=== PATIENT | male | born 1960 | race African-American/Black ===

== ENCOUNTER 2022-07-24 19:01 | Emergency (ER) | payer BC ==
[2022-07-24 19:52] VITALS: BP 139/66; PULSE 71; RESP 16; TEMP 98.3
[2022-07-24] MEDS ORDERED: SODIUM CHLORIDE 0.9% 1,000 ML IV STA (20:03)
[2022-07-24] MEDS ORDERED: METOCLOPRAMIDE 5 MG/ML 2 ML VIAL IVP STA (20:03)
[2022-07-24] MEDS ORDERED: diphenhydrAMINE 50 MG/ML 1 ML VIAL IVP STA (20:03)
[2022-07-24 20:36] LABS: Basophils % (A) 1 %; Eosinophils # (A) 0.1 k/uL (0-0.7); Eosinophils % (A) 4 %; HCT 42.8 % (39.0-53.0); HGB 14.1 gm/dL (13.0-17.5); Lymphocytes # (A) 1.1 k/uL (1.0-4.8); Lymphocytes % (A) 40 %; MCH 29.8 pg (25.0-35.0); MCV 90.3 fL (80.0-100.0); Mean Platelet Volume 7.7; Monocytes # (A) 0.3 k/uL (0-1.0); Monocytes % (A) 12 %; Neutrophils # (A) 1.1 k/uL (1.3-7.7); Neutrophils % (A) 40 %; Platelet Count 183 k/uL (150-450); RBC 4.74 m/uL (4.30-5.90); RDW 12.1 % (11.5-15.5); WBC 2.9 k/uL (3.8-10.6)
[2022-07-24 20:54] LABS: Calcium 9.1 mg/dL (8.4-10.2); Potassium 4.1 mmol/L (3.5-5.1); Total Bilirubin 0.4 mg/dL (0.2-1.3); Total Protein 7.1 g/dL (6.3-8.2)
--- NOTE | 2022-07-24 21:04 | CT ---
EXAMINATION TYPE: CT brain wo con CT DLP: 1123.4 mGycm, Automated exposure control for dose reduction was used. DATE OF EXAM: 07/24/2022 8:44 PM COMPARISON: None. CLINICAL INDICATION:Male, 62 years old with history of Headache, right posterior headache TECHNIQUE: Brain: Axial CT images of the brain were obtained with coronal and sagittal reformats created and rev iewed. Contrast used: None. Oral contrast used: None. FINDINGS: Brain: Extra-axial spaces: No abnormal extra-axial fluid collections. Ventricular system: Within normal limits Cerebral parenchyma: Mild bilateral frontal cerebral atrophy. No acute intraparenchymal hemorrhage or mass effect. The du-white junction is well differentiated. Cerebellum: Unremarkable. Mass effect: No evidence of midline shift. Intracranial vasculature: Atherosclerotic calcifications of the intracranial vessels. Soft tissues: Normal. Calvarium/osseous structures: No depressed skull fracture. Paranasal sinuses and mastoid air cells: Mild scattered paranasal sinus disease.. Mastoid air cells a re Clear Visualized orbits: Orbital contents are intact. IMPRESSION: 1. Mild cerebral atrophy. No acute intracranial process. 2. Mild paranasal sinus disease.
[2022-07-24] MEDS ORDERED: ORPHENADRINE 30 MG/ML 2 ML VIAL IVP STA (21:07)
[2022-07-24] MEDS ORDERED: KETOROLAC 15 MG/ML 1 ML VIAL IVP STA (21:07)
--- NOTE | 2022-07-24 21:51 | ED ---
General Adult HPI - General Chief complaint: ENT Stated complaint: Head Pain Time Seen by Provider: 07/24/22 19:57 Source: patient Mode of arrival: ambulatory - History of Present Illness Initial comments: Patient is a 62-year-old male presenting with chief complaint of headache. He admits to a shooting pain behind the right ear that has been going on for last 2 days. Pain is intermittent. No alleviating or aggravating factors. He has been taking Tylenol for his symptoms which has not been helpful. No pain inside the ear or hearing changes. No numbness or tingling. No nausea, vomiting, dizziness, chest pain, difficulty breathing, neck pain, fever, chills, palpitations, URI-like symptoms. - Related Data Allergies Allergy/AdvReac Type Severity Reaction Status Date / Time No Known Allergies Allergy Verified 07/24/22 19:52 Review of Systems ROS Statement: Those systems with pertinent positive or pertinent negative responses have been documented in the HPI. ROS Other: All systems not noted in ROS Statement are negative. Past Medical History Past Medical History: No Reported History Additional Past Medical History / Comment(s): Lymphona, sarcoidosis, lithotripsy and kidney stone removal Past Surgical History: No Surgical Hx Reported Past Psychological History: No Psychological Hx Reported Smoking Status: Never smoker Past Alcohol Use History: None Reported Past Drug Use History: None Reported General Exam Limitations: no limitations General appearance: alert, in no apparent distress Head exam: Present: atraumatic, normocephalic, normal inspection Eye exam: Present: normal appearance, PERRL, EOMI. Absent: scleral icterus, conjunctival injection, periorbital swelling ENT exam: Present: TM's normal bilaterally Neck exam: Present: normal inspection, full ROM. Absent: tenderness, meningismus Respiratory exam: Present: normal lung sounds bilaterally. Absent: respiratory distress, wheezes, rales, rhonchi, stridor Cardiovascular Exam: Present: regular rate, normal rhythm, normal heart sounds. Absent: systolic murmur, diastolic murmur, rubs, gallop, clicks Neurological exam: Present: alert, oriented X3, CN II-XII intact Psychiatric exam: Present: normal affect, normal mood Skin exam: Present: warm, dry, intact, normal color. Absent: rash Course Vital Signs 07/24/22 19:46 Temperature 98.3 F Pulse Rate 71 Respiratory 16 Rate Blood Pressure 139/66 O2 Sat by Pulse 98 Oximetry Medical Decision Making - Medical Decision Making Was pt. sent in by a medical professional or institution (, JOSE, RETAIL SECURITY PROFESSIONAL, urgent care, hospital, or penitentiary...) When possible be specific @ -No Did you speak to anyone other than the patient for history (EMS, parent, family, police, friend...)? What history was obtained from this source @ -No Did you review nursing and triage notes (agree or disagree)? Why? @ -I reviewed and agree with nursing and triage notes Were old charts reviewed (outside hosp., previous admission, EMS record, old EKG, old radiological studies, urgent care reports/EKG's, penitentiary records)? Report findings @ -No old charts were reviewed Differential Diagnosis (chest pain, altered mental status, abdominal pain women, abdominal pain men, vaginal bleeding, weakness, fever, dyspnea, syncope, headache, dizziness, GI bleed, back pain, seizure, CVA, palpatations, mental health, musculoskeletal)? @ -MDM Differential Headache: Migraine, tension, cluster, carbon monoxide, central venous thrombosis, pension karma temporal arteritis, acute closure glaucoma, intercranial hemorrhage, mastoiditis, sinusitis, head injury this is not meant to be an all-inclusive list. EKG interpreted by me (3pts min.). @ -As above X-rays interpreted by me (1pt min.). @ -None done CT interpreted by me (1pt min.). @ -Mild cerebral atrophy. No acute intracranial process. Mild paranasal sinus disease U/S interpreted by me (1pt. min.). @ -None done What testing was considered but not performed or refused? (CT, X-rays, U/S, labs)? Why? @ -None What meds were considered but not given or refused? Why? @ -None Did you discuss the management of the patient with other professionals (professionals i.e. JOSE Pena, RETAIL SECURITY PROFESSIONAL, lab, RT, psych nurse, social media sr strategy manager, mirror department supervisor, teacher, correction officer supervisor, heel caser)? Give summary @ -No Was smoking cessation discussed for >3mins.? @ -No Was critical care preformed (if so, how long)? @ -No Were there social determinants of health that impacted care today? How? (Homelessness, low income, unemployed, alcoholism, drug addiction, transportation, low edu. Level, literacy, decrease access to med. care, skilled nursing, rehab)? @ -No Was there de-escalation of care discussed even if they declined (Discuss DNR or withdrawal of care, Hospice)? DNR status @ -No What co-morbidities impacted this encounter? (DM, HTN, Smoking, COPD, CAD, Cancer, CVA, ARF, Chemo, Hep., AIDS, mental health diagnosis, sleep apnea, morbid obesity)? @ -None Was patient admitted / discharged? Hospital course, mention meds given and route, prescriptions, significant lab abnormalities, going to OR and other pertinent info. @ -Patient is a 62-year-old male presenting with chief complaint of headache is ongoing for 2 days. Pain is a shooting pain behind the right ear that is intermittent. On physical examination there is no mastoid erythema, swelling, or tenderness. Tympanic membrane is WNL. No neck tenderness. No focal neurological deficits. Lab work is essentially unremarkable. CT of the brain shows no acute process. Patient is given Norflex, Toradol, Decadron, and Benadryl. He is instructed to follow-up with a PCP and educated on supportive t reatment. Follow-up with PCP. Report back to ER with any new or worsening symptoms. Discussed return parameters and answered all questions. Patient conveyed verbal understanding and agreed to the plan. I discussed this case in detail with my attending Dr. Maddox Undiagnosed new problem with uncertain prognosis? @ -No Drug Therapy requiring intensive monitoring for toxicity (Heparin, Nitro, Insulin, Cardizem)? @ -No Were any procedures done? @ -No Diagnosis/symptom? @ -Headache Acute, or Chronic, or Acute on Chronic? @ -Acute Uncomplicated (without systemic symptoms) or Complicated (systemic symptoms)? @ -Uncomplicated Side effects of treatment? @ -No Exacerbation, Progression, or Severe Exacerbation? @ -No Poses a threat to life or bodily function? How? (Chest pain, USA, LA, pneumonia, PE, COPD, DKA, ARF, appy, cholecystitis, CVA, Diverticulitis, Homicidal, Suicidal, threat to staff... and all critical care pts) @ -No - Lab Data Result diagrams: 07/24/22 20:24 07/24/22 20:24 Lab Results 07/24/22 07/24/22 Range/Units 20:24 20:24 WBC 2.9 L (3.8-10.6) k/uL RBC 4.74 (4.30-5.90) m/uL Hgb 14.1 (13.0-17.5) gm/dL Hct 42.8 (39.0-53.0) % MCV 90.3 (80.0-100.0) fL MCH 29.8 (25.0-35.0) pg MCHC 33.0 (31.0-37.0) g/dL RDW 12.1 (11.5-15.5) % Plt Count 183 (150-450) k/uL MPV 7.7 Neutrophils % 40 % Lymphocytes % 40 % Monocytes % 12 % Eosinophils % 4 % Basophils % 1 % Neutrophils # 1.1 L (1.3-7.7) k/uL Lymphocytes # 1.1 (1.0-4.8) k/uL Monocytes # 0.3 (0-1.0) k/uL Eosinophils # 0.1 (0-0.7) k/uL Basophils # 0.0 (0-0.2) k/uL Sodium 141 (137-145) mmol/L Potassium 4.1 (3.5-5.1) mmol/L Chloride 108 H (98-107) mmol/L Carbon Dioxide 28 (22-30) mmol/L Anion Gap 5 mmol/L BUN 12 (9-20) mg/dL Creatinine 1.11 (0.66-1.25) mg/dL Est GFR (CKD-EPI)AfAm 82 (>60 ml/min/1.73 sqM) Est GFR (CKD-EPI)NonAf 71 (>60 ml/min/1.73 sqM) Glucose 114 H (74-99) mg/dL Calcium 9.1 (8.4-10.2) mg/dL Total Bilirubin 0.4 (0.2-1.3) mg/dL AST 27 (17-59) U/L ALT 23 (4-49) U/L Alkaline Phosphatase 81 (38-126) U/L Total Protein 7.1 (6.3-8.2) g/dL Albumin 4.0 (3.5-5.0) g/dL Disposition Clinical Impression: Headache Disposition: HOME SELF-CARE Condition: Good Instructions (If sedation given, give patient instructions): Acute Headache (ED) Additional Instructions: Follow-up with PCP, I have provided a few recommendations. Report back to ER with any new or worsening symptoms. Take Motrin and Tylenol as needed for pain control. Is patient prescribed a controlled substance at d/c from ED?: No Referrals: None,Stated [Primary Care Provider] - 1-2 days [facility] [NON-STAFF] - 1-2 days Kee Wyatt DO [Doctor of Osteopathic Medicine] - 1-2 days Time of Disposition: 21:51
== END 2022-07-24 22:12 | disposition home or self-care (01) ==
LOC: EC 19:01
DX: R51.9 Headache, unspecified (principal)
CPT/HCPCS: 36415; 80053; 85025; 70450; 99284; 96374; 96375 ×3; 96361; J1200; J2360; J2765; J1885

== ENCOUNTER → 2024-07-16 | Outpatient (CLI) | payer BC ==
--- NOTE | 2024-07-17 09:09 | MR ---
CLINICAL INDICATION: Family history of ischemic heart disease Z 82.49 COMPARISON: CT brain 07/24/2022 TECHNIQUE: MR angiography of the head was performed utilizing 3-D noncontrast time of flight images. 3-D reformatted MIP images were generated on a separate workstation for review. Vascular assessment was performed utilizing NASCET criteria. FINDINGS: No aneurysms identified. The basilar artery is diminutive but patent. The right vertebral artery is d ominant and patent. Diminutive appearance of the left vertebral artery with regions of nonvisualizati on. The bilateral posterior cerebral arteries are patent. origin of the bilateral START UP SPECIALIST. The visualized bilateral internal carotid arteries are patent without significant stenosis. The visua lized bilateral middle cerebral arteries and anterior cerebral arteries are patent without significan t stenosis. The anterior communicating artery is hypoplastic. IMPRESSION: 1. No evidence for aneurysm. 2. Diminutive appearance of the left vertebral artery with nonvisualization which may be due to occl usion versus hypoplastic appearance. Otherwise no significant stenosis or large vessel occlusion. [facility], , 07/17/2024 9:07 AM
== END | disposition home or self-care (01) ==
LOC: RADMRIMAIN 19:01
PROVIDERS: ATTEND Family Medicine
DX: Z82.49 Family history of ischemic heart disease and other diseases of the circulatory system (principal)
CPT/HCPCS: 70544

== ENCOUNTER → 2024-10-22 | Outpatient (CLI) | payer BC | END | disposition home or self-care (01) | LOC: LABWHC1 11:37 | PROVIDERS: ATTEND Urology | DX: R97.20 Elevated prostate specific antigen [PSA] (principal) | CPT/HCPCS: 36415; 84153 ==